=== PATIENT | female | born 1975 | race Caucasian/White ===

== ENCOUNTER 2024-11-09 16:27 | Emergency (ER) | payer OTHER, SELFPAY ==
[2024-11-09 16:30] VITALS: BP 140/95; PULSE 91; RESP 18; TEMP 36.9; O2SAT 100; BMI 30.7
--- NOTE | 2024-11-09 17:27 | CT_ITS ---
PROCEDURE: BRAIN/HEAD WITHOUT CONTRAST 11/09/2024 REASON FOR EXAM: COLON CANCER, HEADACHE FOR THE PAST 2 DAYS TECHNIQUE: Procedure Code: CTBR Modality: CT Procedure: BRAIN/HEAD WITHOUT CONTRAST Coronal and Sagittal reconstruction series were provided. One or more dose reduction techniques were used (e.g., Automated exposure control, adjustment of the mA and/or kV according to patient size, use of iterative reconstruction technique. RADIATION DOSE SUMMARY: CTDlvol: 44 mGy DLP: 796 mGycm FINDINGS: The ventricles are normal in size and midline in position. No evidence of acute hemorrhage or infarction. No extra-axial blood or fluid collections. The paranasal sinuses and mastoid air cells are clear. The calvarial vault and skull base are intact. CT/Brain/Head without Contrast IMPRESSION: No acute intracranial abnormality. If there is high clinical concern for intracranial metastasis, MRI with and wit hout contrast is recommended. Reading Location: [id number]
--- NOTE | 2024-11-09 17:29 | EKG12_ITS ---
Test Reason : ARRYTH Blood Pressure : */* mmHG Vent. Rate : 85 BPM Atrial Rate : 85 BPM P-R Int : 152 ms QRS Dur : 144 ms QT Int : 410 ms P-R-T Axes : 17 109 -15 degrees QTcB Int : 487 ms Normal sinus rhythm Right bundle branch block T wave abnormality, consider inferior ischemia Abnormal ECG Confirmed by LUIS ALBERTO GOLDMAN, LYRIC ([id number]), food editor WILL MUELLER ([id number]) on 11/10/2024 11:01:46 AM Referred By: Confirmed By: LYRIC SAHU MD
--- NOTE | 2024-11-09 17:29 | EX.ED.VIS.HA ---
HPI History of Present Illness Chief Complaint: Headache Narrative Narrative: Patient is a 48-year-old female presenting to the emergency department for a headache for the past 2 days. Patient has a past medical history of recently diagnosed colon cancer stage III in July and had a recent resection in September at [facility]. Patient states that she just started chemotherapy on Wednesday and told her oncologist today that she had a headache and they instructed her to come to the emergency department to be evaluated for possible dehydration. She states she started to have a headache yesterday. Describes it as all over. Denies it being sudden onset in nature. Did not reach maximum intensity in 1 second. She states that this morning she was nauseous and had 1 episode of nonbilious nonbloody emesis. States that for the past 2 days whenever she wakes up she has a black spot in her vision that moves from the right to left side in both eyes. States that it takes a few seconds to go away and then she has normal vision. Denies any speech deficits. Denies any numbness or weakness in her arms or legs. Denies any fevers or neck pain. Denies chest pain, SOB, abdominal pain, diarrhea, dysuria or hematuria. PFSH PFSH Allergy/AdvReac Type Severity Reaction Status Date / Time No Known Allergies Allergy Verified 11/09/24 16:30 Social History Smoking Status: Never smoker ROS ROS ED ROS Narrative see HPI EXAM Physical Exam Narrative Exam Narrative: Vital signs: Reviewed General: Alert and oriented x 3. No acute distress HEENT: Head is normocephalic and atraumatic, sinuses nontender, pupils equal round and reactive. Nares are patent. Oropharynx and throat exams normal. Neck: Supple without lymphadenopathy nontender Cardiovascular: Regular rate and rhythm, no murmurs. No rubs or gallops. Normal S1 and S2 Respiratory: Clear to auscultation bilaterally. No wheezes, rales, rhonchi Chest: Right upper chest wall port with no erythema, warmth or fluctuance around the site. Abdominal: Midline surgical incision healing well. No erythema, warmth or fluctuance around the wound. Soft and nontender. Normal bowel sounds. No guarding or rebound. Nonsurgical abdomen Extremities: No tenderness. No bruising. Normal range of motion. Normal sensation. Skin: No rash or redness. Neurological: Cranial nerves II through XII are grossly intact. Normal strength and sensation. Normal cerebellar function The rest of the physical exam is unremarkable Const Vital Signs: 11/09/24 16:30 11/09/24 18:33 11/09/24 20:00 Temperature 98.5 F Temperature Source Oral Pulse Rate 91 83 87 Respiratory Rate 18 15 18 Blood Pressure 140/95 H 145/99 H 159/93 H Blood Pressure Mean 110 114 115 Pulse Ox 100 98 98 Oxygen Delivery Method Room Air Room Air Room Air 11/09/24 21:41 Temperature 98.5 F Temperature Source Pulse Rate 80 Respiratory Rate 17 Blood Pressure 130/96 H Blood Pressure Mean 107 Pulse Ox 94 Oxygen Delivery Method NIHSS NIHSS Initial: 1a Level of Consciousness: 0 1b LOC Questions (Score 2 if aphasic/stupor): 0 1c LOC Commands (Only score 1st attempt): 0 2 Best Gaze (If aphasic, use reflexive mvmts.): 0 3 Visual: 0 4 Facial Palsy: 0 5 Motor Arm Right (UN = amputation/fusion): 0 5 Motor Arm Left: 0 6 Motor Leg Right: 0 6 Motor Leg Left: 0 7 Limb ataxia (Only + if out of proportion): 0 8 Sensory (Aphasia/stupor=0 or 1, coma=2): 0 9 Best Language: 0 10 Dysarthria (mute, coma=2, intubated=UN): 0 11 Extinction and Inattention (only scored if +): 0 Total Score: 0 MDM MDM MDM Narrative Medical decision making narrative: Patient is a 48-year-old female presenting to the emergency department for headache. Patient was seen and examined. Vitals are stable. Patient resting in bed comfortably no acute distress. Differential includes but is not limited to: Intracranial mass, migraine, tension headache, less likely dural venous thrombosis, SAH Patient given migraine cocktail including fluids, Compazine and Benadryl. Will hold on giving Toradol until negative CT results. Headache started two days ago. Neuro intact. Not worst headache of her life. Low concern for SAH. No chemosis, visual changes at time of evaluation. No AMS. Do not think this is dural venous thrombosis. EKG shows normal sinus rhythm with a right bundle branch block. T wave abnormality. No dysrhythmia. CBC with no leukocytosis and a normal hemoglobin. BMP with no significant abnormalities. CT of the brain was obtained and shows no acute intracranial abnormalities. No evidence of metastasis. Toradol given. Patient reevaluated. Headache is gone at this time. She was updated on the negative labs and CT results. Patient discharged from the Emergency Department. I do not feel that the patient's evaluation reveals any acute reason for admission at this time. I instructed them to either follow-up with their primary care physician or promptly return to the Emergency Department for reevaluation should symptoms worsen or new symptoms develop. I explained what symptoms would indicate the need to return to the emergency department. Shared decision making was used. The patient voiced understanding of the treatment plan and is agreeable with it. Clinical impression Headache History & Record Review Discussion w/independent historian: Patient Lab Data Attestation: I reviewed the patient's lab results. Labs: Laboratory Results - last 24 hr 11/09/24 17:55 WBC 7.9 RBC 4.45 Hgb 12.9 Hct 38.5 MCV 86.5 MCH 29.0 MCHC 33.5 RDW Std Deviation 41.1 RDW Coeff of Gavin 13.2 Plt Count 255 MPV 9.8 Immature Gran % (Auto) 0.400 Neut % (Auto) 63.1 Lymph % (Auto) 32.7 [place] % (Auto) 2.9 Eos % (Auto) 0.4 Baso % (Auto) 0.5 Absolute Neuts (auto) 5.0 Absolute Lymphs (auto) 2.58 Nucleated RBC % 0 Sodium 136 Potassium 4.1 Chloride 99 Carbon Dioxide 24.0 Anion Gap 13 BUN 11 Creatinine 0.79 Estim Creat Clear Calc 101.52 Est GFR (MDRD) Non-Af 91 BUN/Creatinine Ratio 14.3 Glucose 144 H Calcium 9.7 Radiography Diagnostic Testing: Clinical Impression(s) from Imaging Studies Brain CT 11/09/24 17:27 IMPRESSION: No acute intracranial abnormality. If there is high clinical concern for intracranial metastasis, MRI with and without contrast is recommended. Reading Location: [facility] Discharge Plan Triage Chief Complaint: Headache Other Complaint: Nausea/Vomiting ED Provider: Maren Haas Dx/Rx/DC Orders Clinical Impression: Headache Instructions: ED Headache Unspecified Primary Care Provider: Marcio Virgen Referrals: Marcio Virgen MD [Primary Care Provider, [facility]] - 2 Days Activity Restrictions/Additional Instructions: Follow-up with your oncologist as soon as possible. Your evaluation in the Emergency Department did not reveal any acute reason for admission. However, I want to emphasize that you may be early in the course of a disease process or illness even if it is not present. For this reason you should follow-up within 24 hours for reevaluation with either your primary care physician or if necessary back here in the Emergency Department. You should return to the Emergency Department immediately if your symptoms worsen or new symptoms develop. Print Language: [place]ralt[place] Disposition Disposition: Home, Self Care Discharge Date/Time: 11/09/24 21:46
[2024-11-09] MEDS: DiphenhydrAMINE 50 MG/ML Syringe 25 MG IV (17:47)
[2024-11-09] MEDS: 0.9% Normal Saline (1000mL) 1,000 ML 1000 ML IV (17:47)
[2024-11-09 18:03] LABS: Hematocrit 38.5 % (37-47); Hemoglobin 12.9 g/dL (12.0-15.0); Immature Granulocytes Count 0.030 X10^3/uL (0.0-0.0); Mean Corp Hgb Conc 33.5 g/dL (32-36); Mean Corpuscular Volume 86.5 fL (81-99); Mean Platelet Vol. 9.8 fl (6.2-12.0); NRBC Flagged by Analyzer 0 % (0-5); Platelet Count 255 K/mm3 (150-450); RBC Distribution Width CV 13.2 % (11.6-14.6); RBC Distribution Width SD 41.1 fl (35.1-43.9); Red Blood Count 4.45 M/mm3 (4.2-5.4); White Blood Count 7.9 K/mm3 (4.4-11.0)
[2024-11-09 18:33] VITALS: BP 145/99; PULSE 83; RESP 15; O2SAT 98
[2024-11-09 19:21] LABS: Anion Gap 13 (5-15); BUN 11 mg/dL (4-19); BUN/Creat Ratio 14.3 RATIO (10-20); Calcium,Total 9.7 mg/dL (7.6-11.0); Carbon Dioxide 24.0 mmol/L (21.0-32.0); Chloride 99 mmol/L (98-108); Estimated Creatinine Clearance 101.52 ml/min (50-250); Glucose 144 mg/dL (70-99); Potassium 4.1 mmol/L (3.3-5.1)
[2024-11-09 20:00] VITALS: BP 159/93; PULSE 87; RESP 18; O2SAT 98
[2024-11-09 21:41] VITALS: BP 130/96; PULSE 80; RESP 17; TEMP 36.9; O2SAT 94
== END 2024-11-09 21:46 | disposition home or self-care (01) ==
PROVIDERS: Emergency Provider Student in an Organized Health Care Education/Training Program; PCP Family Medicine; Visit Provider Student in an Organized Health Care Education/Training Program
DX: R51.9 Headache, unspecified (principal)
CPT/HCPCS: 70450; 80048; 85025; 93005; 96361; 96374; 96375; 99284; A4216